=== PATIENT | female | born 1965 | race Hispanic/Latino ===

== ENCOUNTER 2020-12-17 22:46 | Emergency (ER) | payer BC, OTHER ==
[~2020-12-17] VITALS: Ht 152.4 cm; Wt 63.5 kg
[2020-12-17] MEDS ORDERED: BAYER CHEWABLE81 MG PO (23:23)
[2020-12-17] MEDS ORDERED: LIPITOR40 MG PO (23:24)
[2020-12-17] MEDS ORDERED: LISINOPRIL-HCT1 EACH PO (23:24)
[2020-12-17] MEDS ORDERED: METFORMIN HCL1000 M1 PO (23:25)
[2020-12-17] MEDS ORDERED: NORVASC5 MG PO (23:25)
[2020-12-17] MEDS ORDERED: ZOFRAN4 MG PO (23:26)
[2020-12-17] MEDS ORDERED: OMEPRAZOLE20 M1 PO (23:26)
[2020-12-17] MEDS ORDERED: AMOXICILLIN500 MG (23:27)
[2020-12-17] MEDS ORDERED: LEVOFLOXACIN500 MG PO (23:27)
--- OUTSIDE RECORDS SUMMARY | 2020-12-18 00:30 | XMS ---
PreManage Notification: MANUEL DARDEN Security Scrape Gatherer Events No recent Security Events currently on file CRITERIA MET - 6 ED Visits in 6 Months - [facility] - 2 Visits in 30 Days - [facility] - 3 Facilities in 90 Days CARE PROVIDERS [facility], Clinic/Center: [facility] PHONE: [phone] BREEZY DOS SANTOS Current PHONE: [phone] Susi has no Care Guidelines for this patient. E.D. V[facility] COUNT (12 MO.) [facility] 1 [facility] Rom[facility] TOTAL 7 NOTE: Visits indicate total known visits. ED/UCC VISIT TRACKING (12 MO.) 12/17/2020 22:47 [facility] [place] TYPE: Emergency COMPLAINT: - VOMITNG/ ABD PAIN 11/26/2020 11:53 [facility] TYPE: Emergency DIAGNOSES: - Dizziness - Weakness - Weakness - Left upper quadrant pain - Nausea 11/18/2020 17:21 [facility] TYPE: Emergency COMPLAINT: - Weak and Dizzy - DIZZINESS AND GIDDINESS - OTHER MALAISE - NAUSEA DIAGNOSES: 0. Dizziness and giddiness 1. Dehydration 5. Acute kidney failure, unspecified 6. nursing home (current) use of aspirin 7. salvage determiner (current) use of oral hypoglycemic drugs 8. Other retirement (current) drug therapy 11/10/2020 13:23 [facility] TYPE: Emergency DIAGNOSES: - Diarrhea, unspecified - Nausea with vomiting, unspecified - Dizziness - Emesis - Dizziness and giddiness - Dehydration 10/16/2020 16:36 [facility] TYPE: Emergency DIAGNOSES: - Diarrhea, unspecified - Emesis - Nausea - Diarrhea (Adult) - Dehydration - Dizziness - Nausea 09/14/2020 18:44 [facility] TYPE: Emergency DIAGNOSES: - Cerebral infarction, unspecified - Personal history of covid-19 - Syncope and collapse - Chronic kidney disease, stage 3a - Hyperglycemia, unspecified - Other symptoms and signs involving the musculoskeletal system - Repeated falls - Acidosis - Dizziness - Essential (primary) hypertension - Ocular hypertension, right eye - Headache (Adult - New Onset Or New Symptoms) - Gait Problem - Numbness - Other specified cardiac arrhythmias - Elevated white blood cell count, unspecified - Nausea - Unspecified injury of head, initial encounter - Cerebral infarction due to unspecified occlusion or stenosis of right middle cerebral artery - Other specified abnormal findings of blood chemistry 09/11/2020 06:54 [facility] TYPE: Emergency DIAGNOSES: - HIGH BLOOD PRESSURE - Hypertensive urgency - Essential (primary) hypertension INPATIENT VISIT TRACKING (12 MO.) 09/14/2020 18:44 [facility]: [facility] DIAGNOSES: - Cerebral infarction, unspecified - Chronic kidney disease, stage 3a - Syncope and collapse - Unspecified injury of head, initial encounter - Ocular hypertension, right eye - Hyperglycemia, unspecified - Elevated white blood cell count, unspecified - Other specified abnormal findings of blood chemistry - Other symptoms and signs involving the musculoskeletal system - Personal history of covid-19 - Essential (primary) hypertension - Cerebral infarction due to unspecified occlusion or stenosis of right middle cerebral artery - Other specified cardiac arrhythmias - Acidosis - Repeated falls [email or web address]
[2020-12-18] MEDS ORDERED: REGLAN10 MG PO (00:37)
== END 2020-12-18 00:44 | disposition home or self-care (01) ==
LOC: ED 22:46
DX: R11.2 Nausea with vomiting, unspecified (principal); Z79.82 Long term (current) use of aspirin; Z79.899 Other long term (current) drug therapy; Z79.84 Long term (current) use of oral hypoglycemic drugs
CPT/HCPCS: 99283